=== PATIENT | female | born 1985 | race Caucasian/White ===

== ENCOUNTER 2020-08-21 16:01 | Emergency (ER) | payer BC, MEDICAID ==
[2020-08-21] MEDS ORDERED: Ketorolac 30 MG/ML SDV IVPUSH ONE (16:46)
[2020-08-21] MEDS ORDERED: Metoclopramide 10 MG/2 ML SDV IVPUSH ONE (16:46)
[2020-08-21] MEDS ORDERED: Lactated Ringers 1,000 ML IV ONE (16:46)
[2020-08-21] MEDS ORDERED: diphenhydrAMINE 50 MG/ML SDV IVPUSH ONE (16:46)
[2020-08-21] MEDS ORDERED: Sodium Chloride 0.9% 10 ML Syringe FLUSH PRN (16:47)
--- NOTE | 2020-08-21 16:53 | EDM.PDOC ---
ED HPI GENERAL MEDICAL PROBLEM - General Chief Complaint: Eye Problems Stated Complaint: FLASHING PAIN IN,EYES, NASEUS,TONGUE,MOUTH,NUMB Time Seen by Provider: 08/21/20 16:48 Source of Information: Reports: Patient History Limitations: Reports: No Limitations - History of Present Illness INITIAL COMMENTS - FREE TEXT/NARRATIVE: Patient comes emergency department today with complaints of a headache and paresthesias. This patient at 1430 hrs. developed a pounding headache on the left side of her tentorium with pressure behind her left eye. I was some visual disturbances on the lateral aspect of her vision. No loss of acuity. No double vision. No blurry vision just more some wavy lines in the lateral aspect of her vision. She has had some nausea without vomiting. She has paresthesias of her arms and her feet and they feel like they are cramping up and she became very anxious. She has had no recent falls injuries or head trauma. No head neck or back pain. She does complain of a migraine type pounding sensation in the left tentorium of her head. No fever no chills. No stiff neck. No shortness of breath cough or congestion. No chest pain. No abdominal pain. Nausea without vomiting. No change in the functionality of her upper or lower extremities. No loss of bowel or bladder. No COVID exposure no COVID symptoms Left Eye Pain Score (Numeric/FACES): 6 - Related Data Allergies Allergy/AdvReac Type Severity Reaction Status Date / Time No Known Allergies Allergy Verified 08/21/20 17:38 Home Meds: Home Meds . [No Known Home Meds] 08/21/20 [History] ED ROS GENERAL - Review of Systems Review Of Systems: Comprehensive ROS is negative, except as noted in HPI. ED EXAM GENERAL W FULL EYE - Physical Exam Exam: See Below Exam Limited By: No Limitations General Appearance: Alert, WD/WN, No Apparent Distress Eye Exam: Bilateral Eye: EOMI, PERRL Visual Acuity (R) 20/: 20 Visual Acuity (L) 20/: 50 Eyelids: Bilateral: Normal Appearance Conjunctiva & Sclera: Bilateral: Normal Appearance Extraocular Movements: Bilateral: Intact Pupils: Normal Accommodation Pupillary Size: Bilateral: 3 mm Pupillary Reaction: Bilateral: Brisk Ears: Normal External Exam Nose: Normal Inspection, Normal Mucosa Throat/Mouth: Normal Inspection, Normal Lips, Normal Oropharynx Head: Atraumatic, Normocephalic Neck: Normal Inspection, Supple, Non-Tender, Full Range of Motion Respiratory/Chest: No Respiratory Distress, Lungs Clear, Normal Breath Sounds, No Accessory Muscle Use, Chest Non-Tender Cardiovascular: Normal Peripheral Pulses, Regular Rate, Rhythm GI/Abdominal: Normal Bowel Sounds, Soft, Non-Tender (Male) Exam: Deferred (Female) Exam: Deferred Rectal (Males) Exam: Deferred Rectal (Female) Exam: Deferred Back Exam: Normal Inspection Extremities: Normal Inspection, Normal Range of Motion, Normal Capillary Refill Neurological: Alert, Oriented, Normal Cognition, No Motor/Sensory Deficits Psychiatric: Anxious Skin Exam: Warm, Dry, Intact, Normal Color, No Rash Course - Vital Signs Last Recorded V/S: Last Vital Signs Temp 98.4 F 08/21/20 16:30 Pulse 88 08/21/20 16:30 Resp 16 08/21/20 16:30 BP 126/72 08/21/20 16:30 Pulse Ox 98 08/21/20 16:30 - Orders/Labs/Meds Orders: Active Orders 24 hr Category Date Time Status Peripheral IV Care [RC] . DIRECTED Care 08/21/20 16:47 Active Sodium Chloride 0.9% [Saline Flush] Med 08/21/20 16:47 Active 10 ml FLUSH ASDIRECTED PRN Peripheral IV Insertion Adult [OM.PC] Stat Oth 08/21/20 16:47 Ordered Medication Orders Sodium Chloride (Saline Flush) 10 ml FLUSH ASDIRECTED PRN PRN Reason: Keep Vein Open Last Admin: 08/21/20 17:06 Dose: 10 ml Documented by: TEMI Meds: Medications Generic Name Dose Route Start Last Admin Trade Name Freq PRN Reason Stop Dose Admin Sodium Chloride 10 ml 08/21/20 16:47 08/21/20 17:06 Saline Flush FLUSH 10 ml ASDIRECTED PRN Administration Keep Vein Open Discontinued Medications Generic Name Dose Route Start Last Admin Trade Name Freq PRN Reason Stop Dose Admin Diphenhydramine HCl 25 mg 08/21/20 16:46 08/21/20 17:12 Benadryl IVPUSH 08/21/20 16:47 25 mg ONETIME ONE Administration Lactated Ringer's 1,000 mls @ 1,000 mls/hr 08/21/20 16:46 08/21/20 17:06 Ringers, Lactated IV 08/21/20 17:45 1,000 mls/hr .BOLUS ONE Administration Ketorolac Tromethamine 30 mg 08/21/20 16:46 08/21/20 17:09 Toradol IVPUSH 08/21/20 16:47 30 mg ONETIME ONE Administration Metoclopramide HCl 10 mg 08/21/20 16:46 08/21/20 17:13 Reglan IVPUSH 08/21/20 16:47 10 mg ONETIME ONE Administration - Re-Assessments/Exams Free Text/Narrative Re-Assessment/Exam: 08/21/20 16:51 This really is the presentation of a complex migraine. IV LR 1 L wide open. Ketorolac 30 mg IV push. Benadryl 25 mg IV push. Reglan 10 mg IV push. 08/21/20 18:08 After the above therapy the patient feels much better. Her pain is improved to a 1 out of 10. Her visual acuity is back to normal she does not have the wavy lines in the lateral aspect of her vision. The pressure behind her eye is resolved. This is really the sequelae of a cluster type migraine. She has not struggled with these in the past. We will discharge her home with symptomatic management. Rest is highly important. Decreased emulation of the brain such as lights and sounds. Drink plenty of fluids. Tylenol as needed for pain you can also try [id number] Benadryl as well. She is comfortable with this plan and her questions are answered. Departure - Departure Time of Disposition: 17:59 Disposition: Home, Self-Care 01 Clinical Impression: Migraine Qualifiers: Migraine type: unspecified Status migrainosus presence: without status migrainosus Intractability: not intractable Qualified Code(s): G43.909 - Migraine, unspecified, not intractable, without status migrainosus - Discharge Information Instructions: Migraine Headache, [id number] Forms: ED Department Discharge Additional Instructions: Drink plenty of fluids the next few days. Rest as much possible. Try to limit your Tylenol or Ibuprofen. Decrease stimulation to the brain lights sounds. Return to the ED if new or worsening symptoms. Recheck with PCP in the next 4-6 days if not improving sooner if worse. Sepsis Event Note (ED) - Focused Exam Vital Signs: Vital Signs Temp Pulse Resp BP Pulse Ox 08/21/20 16:30 98.4 F 88 16 126/72 98 - My Orders Last 24 Hours: My Active Orders 08/21/20 16:47 Peripheral IV Care [RC] . DIRECTED Sodium Chloride 0.9% [Saline Flush] 10 ml FLUSH ASDIRECTED PRN Peripheral IV Insertion Adult [OM.PC] Stat - Assessment/Plan Last 24 Hours: My Active Orders 08/21/20 16:47 Peripheral IV Care [RC] . DIRECTED Sodium Chloride 0.9% [Saline Flush] 10 ml FLUSH ASDIRECTED PRN Peripheral IV Insertion Adult [OM.PC] Stat
== END 2020-08-21 18:13 | disposition home or self-care (01) ==
LOC: DL.ED 16:01
DX: G43.909 Migraine, unspecified, not intractable, without status migrainosus (principal)
CPT/HCPCS: 96361; 96374; 96375; 99283; J1200; J1885; J2765; J7120

== ENCOUNTER 2022-07-22 21:56 | Emergency (ER) | payer BC, MEDICAID ==
[2022-07-22] MEDS: Sodium Chloride 0.9% 1,000 ML IV ONE (22:38)
[2022-07-22] MEDS: Ketorolac 30 MG/ML SDV IVPUSH ONE (22:41)
[2022-07-22 22:56] LABS: ANION GAP 12.8 mEq/L (7-13)
[2022-07-22] MEDS: Meclizine 12.5 MG Tab PO ONE (23:55)
== END 2022-07-23 00:45 | disposition home or self-care (01) ==
LOC: DL.ED 21:56
DX: G44.209 Tension-type headache, unspecified, not intractable (principal); H81.10 Benign paroxysmal vertigo, unspecified ear; F17.210 Nicotine dependence, cigarettes, uncomplicated
CPT/HCPCS: 36415; 80053; 84484; 85025; 93005; 96361; 96374; 99284; A9270; J1885; J7030